=== PATIENT | female | born 1950 | race Caucasian/White ===

== ENCOUNTER 2016-09-06 14:50 | Emergency (ER) | payer SELFPAY ==
[~2016-09-06] VITALS: Ht 162.6 cm; Wt 76.0 kg
[2016-09-06 14:52] VITALS: BP 134/82; PULSE 83; RESP 16; TEMP 97.7; O2SAT 97
--- NOTE | 2016-09-06 16:23 | PD ---
Physical Exam Date Seen by Provider: Sep 06, 2016 Time Seen by Provider: 16:19 Narrative 66 YOWF C/O ABD PAIN PROLASE BLADDER ON ANTIBIOTICS. STILL IN PAIN SEEN FH YEST. SYMPTOMS ON AND OFF FOR MONTHS WORSE SINCE YEST. NAUSEA NO VOMITING. SUBJECTIVE FEVER AND CHILLS. ON MACROBID VSS. AWAITING BED PLACEMENT. Data Data Last Documented VS Vital Signs Date Time Temp Pulse Resp B/P Pulse Ox O2 Delivery O2 Flow Rate FiO2 09/06/16 14:52 97.7 83 16 134/82 97 Room Air [facility] Medical Record Reviewed: Yes Supervised Visit with ETIENNE: Yes Florencio Estrella Sep 06, 2016 16:23
--- NOTE | 2016-09-06 20:47 | PD ---
HPI Chief Complaint: Complaint Time Seen by Provider: 20:45 Travel History International Travel<30 days: No Contact w/Intl Traveler<30days: No Traveled to known affect area: No Allergies-Medications (Allergen,Severity, Reaction): Coded Allergies: Sulfa (Verified Allergy, Severe, Nausea/Vomiting, 09/06/16) Reported Meds & Prescriptions Reported Meds & Active Scripts Active Pyridium (Phenazopyridine HCl) 200 Mg Tab 200 Mg PO Q8HR Data Data Last Documented VS Vital Signs Date Time Temp Pulse Resp B/P Pulse Ox O2 Delivery O2 Flow Rate FiO2 09/06/16 21:00 16 09/06/16 14:52 97.7 83 134/82 97 Room Air Orders Bladder Scan PRN (09/06/16 21:04) Phenazopyridine (Pyridium) (09/06/16 21:15) Mandatory Outpatient Referral (09/06/16 21:55) MDM Scripts Phenazopyridine (Pyridium)200 Mg Pno209 Mg PO Q8HR #9 TAB Ref 0 Prov:Yonas Barnard MD 09/06/16 Yonas Barnard MD Sep 06, 2016 20:47
--- NOTE | 2016-09-06 21:10 | PD ---
HPI Chief Complaint: Complaint Time Seen by Provider: 21:06 Travel History International Travel<30 days: No Contact w/Intl Traveler<30days: No Traveled to known affect area: No History of Present Illness HPI Patient comes in complaining of continued bladder discomfort has been going on intermittently for over a month. Patient states she's been on antibiotics as well as Pyridium that seemed to help however yesterday the pain got much worse and she went to the emergency department at [facility] where she was evaluated. Patient states she had CT as well as laboratory work done. Patient states she was told that she has a prolapsed bladder as well as urinary tract infection. Patient was started on antibiotics that she is taking and had a Salvador placed. Patient's Salvador is draining and has helped some however she continues to have pressure sensation as well as urinary urgency. Denies any fevers, back pain, chest pain, nausea, vomiting, or shortness of breath. Patient states she tried to contact someone to follow up with today, but was unable to get in with anyone and and decided to come back to the emergency department. [facility] Past Medical History Medical History: Denies Significant Hx Social History Tobacco Use: No Substance Use: No Allergies-Medications (Allergen,Severity, Reaction): Coded Allergies: Sulfa (Verified Allergy, Severe, Nausea/Vomiting, 09/06/16) Reported Meds & Prescriptions Reported Meds & Active Scripts Active Pyridium (Phenazopyridine HCl) 200 Mg Tab 200 Mg PO Q8HR Review of Systems Except as stated in HPI: all other systems reviewed are Neg Physical Exam Narrative GENERAL: Well-developed, overly nourished, in no acute distress, and non-ill appearing. SKIN: Focused skin assessment warm and dry. HEAD: Atraumatic. Normocephalic. EYES: Pupils equal and round. EOMI. No scleral icterus. No injection or drainage. ENT: No nasal bleeding or discharge. Mucous membranes pink and moist. NECK: Trachea midline. Supple. No nuclear rigidity. CARDIOVASCULAR: Regular rate and rhythm. No murmur appreciated. RESPIRATORY: No accessory muscle use. No respiratory distress. Clear to auscultation. Breath sounds equal bilaterally. GASTROINTESTINAL: Abdomen soft, nondistended. Hepatic and splenic margins not palpable. Normal bowel sounds 4. No pulsatile mass. Patient reports tenderness to palpation suprapubic area. MUSCULOSKELETAL: No obvious deformities. No clubbing. No cyanosis. No edema. Full range of motion. NEUROLOGICAL: Awake and alert. No obvious cranial nerve deficits. Motor grossly within normal limits. Normal speech. PSYCHIATRIC: Appropriate mood and affect; insight and judgment normal. Data Data Last Documented VS Vital Signs Date Time Temp Pulse Resp B/P Pulse Ox O2 Delivery O2 Flow Rate FiO2 09/06/16 21:00 16 09/06/16 14:52 97.7 83 134/82 97 Room Air Orders Bladder Scan PRN (09/06/16 21:04) Phenazopyridine (Pyridium) (09/06/16 21:15) Mandatory Outpatient Referral (09/06/16 21:55) [facility] Medical Decision Making Medical Screen Exam Complete: Yes Emergency Medical Condition: Yes Differential Diagnosis Bladder spasm, urinary retention, nonfunctioning Salvador, other Narrative Course Bladder scan performed at bedside multiple readings obtained all readings are 0 mL's. Patient in no obvious distress upon re-evaluation. Patient was asked if they wanted to speak to my attending, which the patient did not wish to do at this time. Discussed patient with Dr. Barnard prior to discharge, who was in agreeable with plan of care and disposition. Any questions/concerns in reference to patient diagnosis/condition discussed and clarified prior to patient's discharge. Reinforced sheer importance of close follow up with patient's primary physician or primary care clinic and urology. Instructed patient to return to ED immediately, if symptoms return/worsen. Pt showed understanding of above instructions. Further instructions and recommendations were detailed in discharge paperwork. Pt ambulated without difficulty out of ED at discharge. Diagnosis Primary Impression: Bladder pain Patient Instructions: Salvador Catheter Placement and Care (ED), General Instructions Additional Instructions: Follow-up with your primary care physician and urologist this week. Take all medication as prescribed. Continue taking antibiotics as prescribed yesterday. Return to the emergency department if symptoms get worse. Med/Other Pt SpecificInfo: Prescription(s) given Scripts Phenazopyridine (Pyridium)200 Mg Oxc259 Mg PO Q8HR #9 TAB Ref 0 Prov:Yonas Barnard MD 09/06/16 Disposition: 01 DISCHARGE HOME Condition: Stable Gerson Estevez Sep 06, 2016 21:10
[2016-09-06] MEDS ORDERED: PHENAZOPYRIDINE HCL 200 MG TAB PO ONE (21:15)
[2016-09-06] MEDS ORDERED: PYRI200T4 PO (21:59)
== END 2016-09-06 23:03 | disposition home or self-care (01) ==
LOC: NEPE 14:50
DX: R39.89 Other symptoms and signs involving the genitourinary system (principal)
CPT/HCPCS: 99283